=== PATIENT | female | born 1980 | race Caucasian/White ===

== ENCOUNTER → 2017-07-01 | Outpatient (CLI) | payer OTHER ==
[~2017-07-01] MED LIST: ACET-3143 PO; FERR325T3 PO; HYDR15CR4 TP; IBU600 PO; MIR PO; PRENAT PO
--- NOTE | 2017-07-01 13:48 | RADIOLOGY IMAGING REPORT ---
FACILITY: [facility] [place] PATIENT NAME: Salvador Rodriguez : 1980 MR: [id number] V: [id number] EXAM DATE: ORDERING PHYSICIAN: LORENZO ALONZO TECHNOLOGIST: Location: [facility] Patient: Salvador Rodriguez : 1980 Visit/Account:[id number] Date of Sevice: 07/01/2017 EXAMINATION: Abdominal ultrasound complete HISTORY: Abdomen pain COMPARISON: Gallbladder ultrasound December 10, 2016 FINDINGS: Gallbladder: No stones, wall thickening, pericholecystic fluid or sonographic Wylie sign. Liver: There is increased echogenicity throughout liver which can be seen with fatty infiltration or other infiltrative process Common duct: Normal measuring 3.2 mm. Pancreas: Partially obscured by bowel gas Spleen: Normal in size and echogenicity measuring 7.8 cm in length. Kidneys: Normal in size and echogenicity, the right measures nine cm in length, and the left 9.9 cm. No hydronephrosis. Upper abdominal aorta and IVC: Negative. Ascites: None. IMPRESSION: Increased echogenicity throughout the liver which can be seen with fatty infiltration or other infilt rative process Report Dictated By: Perla Montiel MD at 07/01/2017 12:59 PM Report E-Signed By: Perla Montiel MD at 07/01/2017 1:44 PM WSN:CODY
== END ==
LOC: US 01:08
PROVIDERS: ATTEND Family Medicine
DX: K76.0 Fatty (change of) liver, not elsewhere classified (principal)
CPT/HCPCS: 76700